=== PATIENT | female | born 1975 | race Caucasian/White ===

== ENCOUNTER → 2016-08-11 | Outpatient (CLI) | payer OTHER ==
[~2016-08-11] MED LIST: ALBUTEROL1.25 MG/3 INH; BREO ELLIPTA 11 EACH INH; COMBIVENT RESPIM4 GM INH; DUONEB 3.0-0.5 M3 ML INH; KLOR-CON M2020 MEQ PO; LASIX40 MG PO; NEURONTIN800 MG PO; NORCO 325-7.5 M1 TAB PO; PREDNISONE20 MG PO; PROVENTIL HFA6.7 GM INH; SYMBICORT 160-4.6 GM INH; ellipta INH
== END | disposition short-term general hospital (02) ==
LOC: CLPULM 07-14 08:23
DX: J44.9 Chronic obstructive pulmonary disease, unspecified (principal); R04.2 Hemoptysis; R91.1 Solitary pulmonary nodule; I10 Essential (primary) hypertension; F32.9 Major depressive disorder, single episode, unspecified; Z79.899 Other long term (current) drug therapy

== ENCOUNTER → 2016-09-17 | Outpatient (CLI) | payer OTHER | END | disposition short-term general hospital (02) | LOC: CLCARD 08:32 | DX: R07.9 Chest pain, unspecified (principal); R06.02 Shortness of breath; J44.9 Chronic obstructive pulmonary disease, unspecified; F17.210 Nicotine dependence, cigarettes, uncomplicated; G89.29 Other chronic pain; F41.9 Anxiety disorder, unspecified ==

== ENCOUNTER → 2016-09-24 | Outpatient (CLI) | payer OTHER | END | disposition short-term general hospital (02) | LOC: CLCARD 10:04 | DX: J44.9 Chronic obstructive pulmonary disease, unspecified (principal); I26.99 Other pulmonary embolism without acute cor pulmonale; F41.9 Anxiety disorder, unspecified ==

== ENCOUNTER → 2016-12-01 | Outpatient (CLI) | payer SELFPAY | END | disposition short-term general hospital (02) | LOC: CLPULM 01:43 | DX: J44.9 Chronic obstructive pulmonary disease, unspecified (principal); R04.2 Hemoptysis; R91.1 Solitary pulmonary nodule; I10 Essential (primary) hypertension; M19.90 Unspecified osteoarthritis, unspecified site; F32.9 Major depressive disorder, single episode, unspecified; E66.9 Obesity, unspecified; Z72.0 Tobacco use; Z86.718 Personal history of other venous thrombosis and embolism; Z80.1 Family history of malignant neoplasm of trachea, bronchus and lung; Z90.81 Acquired absence of spleen ==